=== PATIENT | female | born 1960 | race Caucasian/White ===

== ENCOUNTER → 2019-03-03 14:32 | Outpatient (CLI) | payer OTHER, SELFPAY ==
--- NOTE | 2019-03-03 | DI.MG.S_ITS ---
BILATERAL DIGITAL SCREENING MAMMOGRAM 3D/2D WITH CAD: 03/03/2019 CLINICAL: Routine screening. Comparison is made to exams dated: 10/10/2015 mammogram, 08/17/2012 mammogram, and 10/21/2007 mammogram - [facility]. There are scattered fibroglandular elements in both breasts. Current study was also evaluated with a Computer Aided Detection (CAD) system. No significant masses, calcifications, or other findings are seen in either breast. There has been no significant interval change. IMPRESSION: NEGATIVE There is no mammographic evidence of malignancy. A 1 year screening mammogram is recommended. This exam was interpreted at Station ID: [id number]. NOTE: For mammograms, a report in lay terms will be sent to the patient. Approximately 15% of breast malignancies will not be visualized mammographically. In the management of a palpable breast mass, a negative mammogram must not discourage biopsy of a clinically suspicious lesion. Electronically Signed By: Adán gutierres/senait:03/04/2019 12:41:20 letter sent: Normal Exam ACR BI-RADS Category 1: Negative [id number]
== END ==
PROVIDERS: PCP Nurse Practitioner Family; Visit Provider Nurse Practitioner Family
DX: Z12.31 Encounter for screening mammogram for malignant neoplasm of breast (principal)
CPT/HCPCS: 77063; 77067

== ENCOUNTER 2023-11-03 11:46 | Inpatient (IN) | payer OTHER, SELFPAY ==
[2023-11-03] VITALS (10 sets, daily range): BP systolic 127–191; BP diastolic 65–88; PULSE 77–91; RESP 18; TEMP 34.7–37; O2SAT 94–98; BMI 44.7
--- NOTE | 2023-11-03 12:07 | DI.CT.S_ITS ---
PROCEDURE: CT ABDOMEN PELVIS W CON INDICATIONS: RLQ ABD PAIN TECHNIQUE: After the administration of intravenous contrast, axial sections acquired from the lung bases to the pubic symphysis. Coronal and sagittal reformats were performed. For radiation dose reduction, the following was used: automated exposure control, adjustment of mA and/or kV according to patient size. COMPARISON: None. FINDINGS: Image quality: Diagnostic. Lower Chest: No significant findings. ABDOMEN: Liver: No solid mass. Normal size. Mild hepatic steatosis. Gallbladder: Surgically removed. Biliary ducts: No biliary dilation. Pancreas: No ductal dilation. Spleen: Size is within normal limits. Adrenal Glands: No adrenal nodules. Kidneys and Ureters: No hydronephrosis. No solid mass. No complex renal cystic lesion which requires follow up. Stomach and Bowel: Normal bowel caliber. There are numerous colonic diverticula. There is pericolonic stranding in sigmoid colon consistent with acute diverticulitis. Peritoneum: There are multiple foci of free air in peritoneal cavity in the pelvis and upper abdomen, likely secondary to diverticular perforation. No organized, drainable fluid collections to suggest abscess. Appendix is normal. Ventral Wall: No significant ventral hernia. Abdominal Nodes: No retroperitoneal or mesenteric adenopathy by size criteria. Vessels: Aorta and inferior vena cava are normal in size. PELVIS: Pelvic Organs: Unremarkable. Bladder: No bladder wall thickening, accounting for underdistention. Pelvic Nodes: No enlarged lymph nodes. Miscellaneous: No inguinal hernias are seen. Bones: No aggressive osseous abnormality. Moderate degenerative disc disease at L2-L3. Moderate facet arthropathy at L4-L5 and L5-S1. IMPRESSION: 1. Diverticulosis and acute sigmoid diverticulitis. There are multiple foci of free intraperitoneal air, likely secondary to diverticular perforation. No drainable fluid collections to suggest abscess. The result was discussed with Dr. Seymour in ER. Dictated by: Taran Villagran M.D. on 11/03/2023 at 13:16 Approved by: Taran Villagran M.D. on 11/03/2023 at 13:24
--- NOTE | 2023-11-03 12:07 | ED.ABDPAIN ---
HPI - Abdominal Pain General Chief Complaint: Abdominal Pain Stated Complaint: abdominal pain Time Seen by Provider: 11/03/23 11:55 Source: patient Mode of arrival: Family Vehicle History of Present Illness HPI narrative: 63-year-old female with history asthma, sleep apnea presents by private vehicle from home for 1 day of right lower quadrant abdominal pain. Patient states she was hospitalized for 2 days at [facility] in late September for influenza with hypoxia, she was discharged home, and has been in her usual state of health until yesterday. Pain is aggravating, constant, worsens with movement. Improved with ibuprofen. Denies fevers, chills, nausea, vomiting, other complaints at this time. Related Data Home Medications Medication Instructions Recorded Confirmed cetirizine 10 mg tablet 10 mg PO QDAYP PRN ##0 02/06/17 fluticasone propionate 50 1 spray intranasal QDAY PRN ##0 02/06/17 mcg/actuation nasal spray,suspension (Flonase Allergy Relief) aspirin 81 mg tablet,delayed 81 mg PO QDAY ##0 04/18/17 release cholecalciferol (vitamin D3) 25 1,000 mg PO QDAY ##0 04/18/17 mcg (1,000 unit) tablet (Vitamin D3) coenzyme Q10 100 mg capsule (Co 100 mg PO QDAY ##0 04/18/17 Q-10) cyanocobalamin (vitamin B-12) 500 500 mcg PO QDAY ##0 04/18/17 mcg lozenges (Vitamin B-12) ibuprofen 400 mg tablet 400 mg PO Q8HP PRN ##0 04/18/17 Previous Rx's Medication Instructions Recorded albuterol sulfate 90 mcg/actuation 0.09 mg IH Q4HP PRN #1 inh 01/15/17 aerosol inhaler (Proventil HFA) furosemide 20 mg tablet (Lasix) 20 mg PO QDAY #90 tabs 03/25/17 betamethasone dipropionate 0.05 % 1 marissa topical SEE INSTRUCTIONS ##45 04/03/17 topical ointment methylphenidate HCl 10 mg tablet 10 mg PO BID #60 tabs 04/15/17 (Ritalin) Allergies Allergy/AdvReac Type Severity Reaction Status Date / Time amoxicillin [AMOXICILLIN] Allergy Mild HIVES Verified 11/03/23 13:39 ampicillin [AMPICILLIN] Allergy Mild HIVES Verified 11/03/23 13:39 cephalexin [CEPHALEXIN] Allergy Mild HIVES Verified 11/03/23 13:39 sulfamethoxazole Allergy Mild HIVES Verified 11/03/23 13:39 [SULFAMETHOXAZOLE] trimethoprim [TRIMETHOPRIM] Allergy Mild HIVES Verified 11/03/23 13:39 Review of Systems Review of Systems Narrative: Negative except as noted above Patient History Medical History (Updated 11/03/23 @ 14:11 by Eugenia Seymour MD) Obstructive sleep apnea syndrome (01/15/17) Surgical History Status post surgery (06/13/17) Status post cholecystectomy Family History Mother Hypertension Social History Smoking Status: Never smoker Smoking Status: Never smoker Substance Use Type: does not use Exam Initial Vital Signs Initial Vital Signs: Vital Signs Temperature 94.4 F L 11/03/23 11:50 Pulse Rate 90 11/03/23 11:50 Respiratory Rate 18 11/03/23 11:50 Blood Pressure 191/84 H 11/03/23 11:50 Pulse Oximetry 98 11/03/23 11:50 Oxygen Delivery Method Room Air 11/03/23 11:50 Const: Awake, alert, no acute distress, nontoxic appearing Cardiac: regular rate, regular rhythm RESP: unlabored, clear bilaterally, no wheezing GI: Distended, RLQ tenderness to deep palpation, no rebound, no guarding MSK: Atraumatic, full range of motion, pulses equal Skin: Warm, Dry, intact, no rashes Neuro: AO x3, CN II-XII grossly intact, moves all extremities Course Orders Ordered: ED Orders 11/03/23 12:07 CT abdomen pelvis w con Stat 11/03/23 12:10 CBC Auto Diff [Complete Blood Count AUTO DIFF] Stat CMP [Comprehensive Metabolic Panel] Stat 11/03/23 12:35 UA Complete [Urinalysis and Microscopic] Stat 11/03/23 13:38 Blood Culture Stat Ciprofloxacin (Cipro) 400 mg in 200 mls @ 200 mls/hr IV NOW ONE Stop: 11/03/23 14:38 Metronidazole (Flagyl) 500 mg in 100 mls @ 100 mls/hr IV NOW ONE Stop: 11/03/23 14:38 Discontinued Medications Morphine Sulfate (Morphine 4 Mg/Ml Inj) 4 mg IV NOW ONE Stop: 11/03/23 13:17 Last Admin: 11/03/23 13:41 Dose: 4 mg Documented By: ISELA Vital Signs Vital signs: Vital Signs - 8 hr 11/03/23 11:50 11/03/23 12:01 11/03/23 12:04 Temperature 94.4 F L Pulse Rate 90 91 H Respiratory Rate 18 Blood Pressure 191/84 H 177/83 H Pulse Oximetry 98 97 Oxygen Delivery Method Room Air 11/03/23 12:04 11/03/23 12:30 11/03/23 13:10 Temperature Pulse Rate 85 89 77 Respiratory Rate Blood Pressure Pulse Oximetry 98 95 Oxygen Delivery Method Room Air 11/03/23 13:30 Temperature Pulse Rate 86 Respiratory Rate Blood Pressure Pulse Oximetry 97 Oxygen Delivery Method Room Air MDM - Abdominal Pain Differential Diagnosis Differential diagnosis: Likely abdominal pain, acute appendicitis and calculus of kidney Lab Data 11/03/23 12:10 11/03/23 12:10 Labs: Lab Results 11/03/23 11/03/23 Range/Units 12:10 12:35 WBC 12.4 H (4.5-11.0) X10^3/uL RBC 4.11 (4.0-5.2) X10^6/uL Hgb 12.4 (12.0-16.0) g/dL Hct 37.1 (36-46) % MCV 90.3 (80-100) fL MCH 30.3 (26-34) PG MCHC 33.5 (30-36) % RDW 14.4 (11.6-14.8) % Plt Count 247 (150-400) X10^3/uL Neut % (Auto) 83.9 H (50-75) % Lymph % (Auto) 10.1 L (25-40) % [place] % (Auto) 5.3 (3-14) % Eos % (Auto) 0.1 L (2-4) % Baso % (Auto) 0.6 (0-2) % Neut # (Auto) 85146 H (0698-0114) /uL Lymph # (Auto) 1300 (0298-0512) /uL [place] # (Auto) 700 (0-900) /uL Eos # (Auto) 0 (0-450) /uL Baso # (Auto) 100 (0-100) /uL Sodium 139 (137-145) mmol/L Potassium 3.4 (3.4-5.1) mmol/L Chloride 107 (98-107) mmol/L Carbon Dioxide 28 (22-32) mmol/L BUN 10 (7-17) mg/dL Creatinine 0.45 L (0.52-1.04) mg/dL Estimated GFR > 60 (>60) mL/min BUN/Creatinine Ratio 22.2 H (6-22) Glucose 119 H (80-110) mg/dL Calcium 9.8 (8.4-10.2) mg/dL Total Bilirubin 1.5 H (0.2-1.3) mg/dL AST 21 (14-36) IU/L ALT 29 (<35) IU/L Alkaline Phosphatase 67 (38-126) U/L Total Protein 7.3 (6.3-8.2) g/dL Albumin 4.1 (3.5-5.0) g/dL Globulin 3.2 (1.7-4.1) g/dL Albumin/Globulin Ratio 1.3 (1.0-2.8) Urine Color Yellow Urine Appearance Clear Urine pH 6.0 (4.5-8.0) Ur Specific [place] 1.015 (1.000-1.035) Urine Protein Negative (Negative) Urine Glucose (UA) Negative (Negative) g/dL Urine Ketones Negative (NEGATIVE) Urine Occult Blood Negative (Negative) Urine Nitrate Negative (Negative) Urine Bilirubin Negative (NEGATIVE) Urine Urobilinogen 0.2 (0.2) E.U./dL Ur Leukocyte Esterase Negative (NEGATIVE) Urine RBC None seen (0-5/HPF) Urine WBC None seen (0-5/HPF) Ur Squamous Epith Cells None seen (0-5/HPF) Urine Bacteria None seen (None) Ur Culture Indicated? Cult not indicated Vol Urine Centrifuged 10ml (spun) Point of care testing: Urine Dip Bedside Urine Glucose Negative Bedside Urine Bilirubin - Negative Bedside Urine Ketone - Negative Urine Specific [place] 1.020 Bedside Urine Occult Blood - Negative Bedside Urine pH 6.0 Bedside Urine Protein - Negative Bedside Urine Urobilinogen - Negative Bedside Urine Nitrite - Negative Bedside Urine Leukocytes - Negative Esterase MDM Narrative Medical decision making narrative: Nontoxic appearing patient with 1 day of right lower quadrant pain. Patient does have right lower quadrant tenderness to deep palpation, no peritoneal signs, however patient's abdomen seems distended. Patient denies history of abdominal or liver issues. We will order laboratory work and CT imaging. Laboratory work is reviewed, significant for WBC count 12.4, creatinine 0.45, T bili 1.5, AST 21, ALT 29. Preliminary review of CT scan appears to show free air under the diaphragm. Stat call placed to radiology for expedited read, who confirmed free air in the abdomen due to perforated diverticulitis. Call placed to general surgery Dr. Trinidad, who came to assess the patient at bedside. Patient reports allergy to penicillins and so Cipro and Flagyl were ordered IV for coverage. Dr. Trinidad has assessed the patient at bedside, states that based on patient's clinical presentation as well as abdominal exam at this time he believes patient will be a good candidate for IV antibiotics and hospital observation. Requested admission to hospitalist service. Patient informed of plan and is in agreement with admission at this time. Discharge Plan Departure Patient Disposition: Admitted as Observation Clinical Impression: Perforated diverticulum Abdominal pain Qualifiers: Abdominal location: right lower quadrant Qualified Code(s): R10.31 - Right lower quadrant pain Admit Date/Time: 11/03/23 13:43 Admit Provider: Mannie Castellanos
[2023-11-03 12:21] LABS: Add Manual Diff / Slide Review NO; Basophils Absolute Auto 100 /uL (0-100); Basophils Percent Auto 0.6 % (0-2); Eosinophils Absolute Auto 0 /uL (0-450); Eosinophils Percent Auto 0.1 % (2-4); Hematocrit 37.1 % (36-46); Hemoglobin 12.4 g/dL (12.0-16.0); Lymphocytes Absolute Auto 1300 /uL (1100-4500); Lymphocytes Percent Auto 10.1 % (25-40); Mean Corpuscular HGB Conc 33.5 % (30-36); Mean Corpuscular Hemoglobin 30.3 PG (26-34); Mean Corpuscular Volume 90.3 fL (80-100); Monocytes Absolute Auto 700 /uL (0-900); Monocytes Percent Auto 5.3 % (3-14); Neutrophils Absolute Auto 10500 /uL (1500-7000); Neutrophils Percent Auto 83.9 % (50-75); Platelet Count 247 X10^3/uL (150-400); Red Blood Cell Count 4.11 X10^6/uL (4.0-5.2); Red Cell Distribution Width 14.4 % (11.6-14.8); White Blood Cell Count 12.4 X10^3/uL (4.5-11.0)
[2023-11-03 12:45] LABS: Appearance Urine UA CLEAR; Bilirubin Urine UA NEGATIVE (NEGATIVE); Color Urine UA YELLOW; Glucose Urine UA NEGATIVE (Negative); Ketones Urine UA NEGATIVE (NEGATIVE); Leukocyte Esterase Urine UA NEGATIVE (NEGATIVE); Nitrite Urine UA NEGATIVE (Negative); Occult Blood Urine UA NEGATIVE (Negative); Protein Urine UA NEGATIVE (Negative); Specific Gravity Urine UA 1.015 (1.000-1.035); Urobilinogen Urine UA 0.2 E.U./dL (0.2)
--- NOTE | 2023-11-03 12:45 | PC.NURSE ---
Addendum entered by Janay Barajas R.N. 11/03/23 16:09: Please disregard below. Entered on wrong chart. Original Note: Spoke to poison control. They state that dose (400 mg tablets x # 38 tablets max ingestion) does not appear to be in severe category. Mild to moderate = nausea/vomiting/headache. Supportive care indicated. Ok to eat/drink. Severe would be renal implications and possible seizure. Reported to Dr. Seymour.
[2023-11-03 12:52] LABS: Alanine Aminotransferase 29 IU/L (<35); Albumin 4.1 g/dL (3.5-5.0); Albumin Globulin Ratio 1.3 (1.0-2.8); Alkaline Phosphatase 67 U/L (38-126); Aspartate Aminotransferase 21 IU/L (14-36); BUN Creatinine Ratio 22.2 (6-22); Bilirubin Total 1.5 mg/dL (0.2-1.3); Blood Urea Nitrogen 10 mg/dL (7-17); Calcium 9.8 mg/dL (8.4-10.2); Carbon Dioxide 28 mmol/L (22-32); Chloride 107 mmol/L (98-107); Estimated Glomerular Filt Rate > 60 mL/min (>60); Globulin 3.2 g/dL (1.7-4.1); Glucose 119 mg/dL (80-110); HEMOLYSIS < 15 (0-50); Potassium 3.4 mmol/L (3.4-5.1); Sodium 139 mmol/L (137-145); Total Protein 7.3 g/dL (6.3-8.2)
[2023-11-03 12:56] LABS: Bacteria Urine None Seen; Culture Indicated Urine Cult Not Indicated; RBC Urine None Seen (0-5/HPF); Squamous Epithelial Cell Urine None Seen (0-5/HPF); Urine Volume 10mL (spun); WBC Urine None Seen (0-5/HPF)
[2023-11-03] MEDS: MORPHINE 4 MG/ML INJ IV (13:41)
[2023-11-03] MEDS: CIPROFLOXACIN 400 MG/200 ML PIGGYBACK 200 MG IV (14:07)
[2023-11-03] MEDS: metroNIDAZOLE 500 MG/100 ML PIGGYBACK 100 MG IV (15:35)
--- NOTE | 2023-11-03 16:07 | P.HP_ITS ---
History of Present Illness History of Present Illness Date Patient Seen: 11/03/23 Chief complaint: abdominal pain Narrative: Alma Rosa Rodrigues is a 63-year-old female with past medical history of hypertension, ALYSSA, morbid obesity and cholecystectomy who presents with abdominal pain and found to have perforated diverticulitis. Patient states she developed acute onset RLQ abd pain last night. She has never had diverticulitis before. Pain continued to worsen so she came to the ED from [place] where she lives. She says her grandmother had diverticulosis. Denies NV, diarrhea, CP, SOB, or vertigo. In the ED patient's CT abd showed perforated diverticulitis with small free air in abdomen. Normal appendix. [facility] Medical History (Updated 11/03/23 @ 14:11 by Eugenia Seymour MD) Obstructive sleep apnea syndrome (01/15/17) Surgical History Status post surgery (06/13/17) Status post cholecystectomy Family History Mother Hypertension Social History household members: none Smoking Status: Never smoker alcohol intake: current Meds Home Medications and Allergies Home Medications Medication Instructions Recorded Confirmed Type ibuprofen 400 mg tablet 400 mg PO Q8HP PRN Pain (Scale 04/18/17 11/03/23 History Score 4-6) ##0 albuterol sulfate 2.5 mg/3 mL 2.5 mg inhalation Q6H PRN 11/03/23 11/03/23 History (0.083 %) solution for nebulization Shortness Of Breath amlodipine 5 mg tablet 5 mg PO DAILY 11/03/23 11/03/23 History Allergies Allergy/AdvReac Type Severity Reaction Status Date / Time amoxicillin [AMOXICILLIN] Allergy Mild HIVES Verified 11/03/23 13:39 ampicillin [AMPICILLIN] Allergy Mild HIVES Verified 11/03/23 13:39 cephalexin [CEPHALEXIN] Allergy Mild HIVES Verified 11/03/23 13:39 sulfamethoxazole Allergy Mild HIVES Verified 11/03/23 13:39 [SULFAMETHOXAZOLE] trimethoprim [TRIMETHOPRIM] Allergy Mild HIVES Verified 11/03/23 13:39 Review of Systems Review of Systems Narrative: All other systems reviewed with the patient and are negative unless otherwise stated. Exam Vital Signs (past 8 hours): - 11/03/23 11:50 11/03/23 12:01 11/03/23 12:04 Temperature 94.4 F L Pulse Rate 90 91 H Respiratory Rate 18 Blood Pressure 191/84 H 177/83 H Pulse Oximetry 98 97 Oxygen Delivery Method Room Air 11/03/23 12:04 11/03/23 12:30 11/03/23 13:10 Temperature Pulse Rate 85 89 77 Respiratory Rate Blood Pressure Pulse Oximetry 98 95 Oxygen Delivery Method Room Air 11/03/23 13:30 11/03/23 14:00 11/03/23 14:12 Temperature Pulse Rate 86 83 Respiratory Rate Blood Pressure 148/80 H Pulse Oximetry 97 94 Oxygen Delivery Method Room Air 11/03/23 14:12 11/03/23 14:30 11/03/23 14:30 Temperature Pulse Rate 85 81 Respiratory Rate Blood Pressure 150/88 H Pulse Oximetry 94 95 Oxygen Delivery Method Room Air Oxygen Delivery Method Room Air Narrative Exam Narrative: GEN: no acute distress, obese HEENT: moist mucous membranes, PERRL NECK: trachea midline, no JVD CV: regular rate and rhythm, no murmurs PULM: clear bilaterally ABD: soft, tenderness in RLQ, nondistended, no organomegaly EXT: warm and well perfused with no edema NEURO: awake, alert, oriented, no focal deficits Objective Labs 11/03/23 12:10 11/03/23 12:10 Labs: Laboratory Results - last 24 hr 11/03/23 11/03/23 12:10 12:35 WBC 12.4 H RBC 4.11 Hgb 12.4 Hct 37.1 MCV 90.3 MCH 30.3 MCHC 33.5 RDW 14.4 Plt Count 247 Neut % (Auto) 83.9 H Lymph % (Auto) 10.1 L [place] % (Auto) 5.3 Eos % (Auto) 0.1 L Baso % (Auto) 0.6 Neut # (Auto) 67672 H Lymph # (Auto) 1300 [place] # (Auto) 700 Eos # (Auto) 0 Baso # (Auto) 100 Sodium 139 Potassium 3.4 Chloride 107 Carbon Dioxide 28 BUN 10 Creatinine 0.45 L Estimated GFR > 60 BUN/Creatinine Ratio 22.2 H Glucose 119 H Calcium 9.8 Total Bilirubin 1.5 H AST 21 ALT 29 Alkaline Phosphatase 67 Total Protein 7.3 Albumin 4.1 Globulin 3.2 Albumin/Globulin Ratio 1.3 Urine Color Yellow Urine Appearance Clear Urine pH 6.0 Ur Specific [place] 1.015 Urine Protein Negative Urine Glucose (UA) Negative Urine Ketones Negative Urine Occult Blood Negative Urine Nitrate Negative Urine Bilirubin Negative Urine Urobilinogen 0.2 Ur Leukocyte Esterase Negative Urine RBC None seen Urine WBC None seen Ur Squamous Epith Cells None seen Urine Bacteria None seen Ur Culture Indicated? Cult not indicated Vol Urine Centrifuged 10ml (spun) Assessment & Plan Assessment & Plan narrative: # acute perforated diverticulitis -continue Cipro and Flagyl, has allergy to penicillin -general surgery following -per CT no evidence of abscess -clears for now, NPO at midnight just in case # hypertension -continue home amlodipine # ALYSSA -continue CPAP # morbid obesity -BMI 44 Code status is full code. DVT prophylaxis with SCDs. Proxy is sister Dominga. I have reviewed home meds and used all available resources to reconcile the home meds. Case discussed with ED physician/APC and patient will be admitted to the hospitalist service for further workup and management. This patient will be admitted as observation and will require less than 2 midnights of hospital time to treat perforated diverticulitis. Quality VTE Deep Vein Thrombosis/Pulmonary Embolism Present on Admission: No
--- NOTE | 2023-11-03 17:28 | P.CONS_ITS ---
History of Present Illness Consult details Date Patient Seen: 11/03/23 Chief complaint: abdominal pain Narrative: The patient is a 63-year-old woman who presented to the emergency room with approximately 12 hours of sudden onset left lower quadrant pain. A CT scan demonstrated acute perforated diverticulitis without abscess or phlegmon. She has never had diverticulitis before. Meds Home Medications and Allergies Home Medications Medication Instructions Recorded Confirmed Type ibuprofen 400 mg tablet 400 mg PO Q8HP PRN Pain (Scale 04/18/17 11/03/23 History Score 4-6) ##0 albuterol sulfate 2.5 mg/3 mL 2.5 mg inhalation Q6H PRN 11/03/23 11/03/23 History (0.083 %) solution for nebulization Shortness Of Breath amlodipine 5 mg tablet 5 mg PO DAILY 11/03/23 11/03/23 History Allergies Allergy/AdvReac Type Severity Reaction Status Date / Time amoxicillin [AMOXICILLIN] Allergy Mild HIVES Verified 11/03/23 13:39 ampicillin [AMPICILLIN] Allergy Mild HIVES Verified 11/03/23 13:39 cephalexin [CEPHALEXIN] Allergy Mild HIVES Verified 11/03/23 13:39 sulfamethoxazole Allergy Mild HIVES Verified 11/03/23 13:39 [SULFAMETHOXAZOLE] trimethoprim [TRIMETHOPRIM] Allergy Mild HIVES Verified 11/03/23 13:39 Exam Vital Signs (past 8 hours): - 11/03/23 11:50 11/03/23 12:01 11/03/23 12:04 Temperature 94.4 F L Pulse Rate 90 91 H Respiratory Rate 18 Blood Pressure 191/84 H 177/83 H Pulse Oximetry 98 97 Oxygen Delivery Method Room Air 11/03/23 12:04 11/03/23 12:30 11/03/23 13:10 Temperature Pulse Rate 85 89 77 Respiratory Rate Blood Pressure Pulse Oximetry 98 95 Oxygen Delivery Method Room Air 11/03/23 13:30 11/03/23 14:00 11/03/23 14:12 Temperature Pulse Rate 86 83 Respiratory Rate Blood Pressure 148/80 H Pulse Oximetry 97 94 Oxygen Delivery Method Room Air 11/03/23 14:12 11/03/23 14:30 11/03/23 14:30 Temperature Pulse Rate 85 81 Respiratory Rate Blood Pressure 150/88 H Pulse Oximetry 94 95 Oxygen Delivery Method Room Air Oxygen Delivery Method Room Air Narrative Exam Narrative: Abdomen generalized tenderness to palpation in all quadrants without yessica peritonitis Speaking in full sentences Const Nutritional Appearance: obese Objective Labs 11/03/23 12:10 11/03/23 12:10 Labs: Laboratory Results - last 24 hr 11/03/23 11/03/23 12:10 12:35 WBC 12.4 H RBC 4.11 Hgb 12.4 Hct 37.1 MCV 90.3 MCH 30.3 MCHC 33.5 RDW 14.4 Plt Count 247 Neut % (Auto) 83.9 H Lymph % (Auto) 10.1 L [place] % (Auto) 5.3 Eos % (Auto) 0.1 L Baso % (Auto) 0.6 Neut # (Auto) 27694 H Lymph # (Auto) 1300 [place] # (Auto) 700 Eos # (Auto) 0 Baso # (Auto) 100 Sodium 139 Potassium 3.4 Chloride 107 Carbon Dioxide 28 BUN 10 Creatinine 0.45 L Estimated GFR > 60 BUN/Creatinine Ratio 22.2 H Glucose 119 H Calcium 9.8 Total Bilirubin 1.5 H AST 21 ALT 29 Alkaline Phosphatase 67 Total Protein 7.3 Albumin 4.1 Globulin 3.2 Albumin/Globulin Ratio 1.3 Urine Color Yellow Urine Appearance Clear Urine pH 6.0 Ur Specific [place] 1.015 Urine Protein Negative Urine Glucose (UA) Negative Urine Ketones Negative Urine Occult Blood Negative Urine Nitrate Negative Urine Bilirubin Negative Urine Urobilinogen 0.2 Ur Leukocyte Esterase Negative Urine RBC None seen Urine WBC None seen Ur Squamous Epith Cells None seen Urine Bacteria None seen Ur Culture Indicated? Cult not indicated Vol Urine Centrifuged 10ml (spun) [facility] Medical History (Updated 11/03/23 @ 14:11 by Eugenia Seymour MD) Obstructive sleep apnea syndrome (01/15/17) Surgical History Status post surgery (06/13/17) Status post cholecystectomy Family History Mother Hypertension Social History household members: none Tobacco & Substance Use Smoking Status: Never smoker alcohol intake: current Assessment & Plan Assessment and plan (1) Perforated diverticulum: Status: Acute Plan Given her moderate level of abdominal tenderness and stable vital signs I recommend IV antibiotic treatment for perforated diverticulitis. If her symptoms worsen she would need to go to the operating room for a Conchis's procedure.
[2023-11-03] MEDS: ACETAMINOPHEN 325 MG TABLET 650 MG PO (19:43)
[2023-11-03] MEDS: OXYCODONE IR 5 MG TABLET PO (19:44)
[2023-11-03] MEDS: metroNIDAZOLE 500 MG TABLET PO (20:14)
[2023-11-04] VITALS (8 sets, daily range): BP systolic 107–149; BP diastolic 58–72; PULSE 70–91; RESP 16–20; TEMP 36.3–37.4; O2SAT 91–93
[2023-11-04] MEDS: CIPROFLOXACIN 400 MG/200 ML PIGGYBACK 200 MG IV ×2 (01:01→14:39)
[2023-11-04] MEDS: SODIUM CHLORIDE 0.9% 1,000 ML 125 ML IV ×2 (02:30→10:05)
[2023-11-04] MEDS: HYDROMORPHONE 1 MG INJ IV (05:44)
[2023-11-04 05:59] LABS: Add Manual Diff / Slide Review NO; Basophils Absolute Auto 0 /uL (0-100); Basophils Percent Auto 0.2 % (0-2); Eosinophils Absolute Auto 0 /uL (0-450); Eosinophils Percent Auto 0.3 % (2-4); Hematocrit 31.6 % (36-46); Hemoglobin 10.7 g/dL (12.0-16.0); Lymphocytes Absolute Auto 1100 /uL (1100-4500); Lymphocytes Percent Auto 9.7 % (25-40); Mean Corpuscular HGB Conc 33.9 % (30-36); Mean Corpuscular Volume 91.4 fL (80-100); Monocytes Absolute Auto 800 /uL (0-900); Monocytes Percent Auto 7.6 % (3-14); Neutrophils Absolute Auto 9100 /uL (1500-7000); Neutrophils Percent Auto 82.2 % (50-75); Platelet Count 214 X10^3/uL (150-400); Red Blood Cell Count 3.46 X10^6/uL (4.0-5.2); Red Cell Distribution Width 14.2 % (11.6-14.8); White Blood Cell Count 11.1 X10^3/uL (4.5-11.0)
[2023-11-04 06:04] LABS: INR 1.1 (0.9-1.3); Prothrombin Time 13.1 SECONDS (9.4-12.5)
[2023-11-04 06:09] LABS: BUN Creatinine Ratio 20.9 (6-22); Blood Urea Nitrogen 9 mg/dL (7-17); Calcium 8.7 mg/dL (8.4-10.2); Carbon Dioxide 26 mmol/L (22-32); Chloride 106 mmol/L (98-107); Estimated Glomerular Filt Rate > 60 mL/min (>60); Glucose 119 mg/dL (80-110); HEMOLYSIS < 15 (0-50); Potassium 3.5 mmol/L (3.4-5.1); Sodium 136 mmol/L (137-145)
--- NOTE | 2023-11-04 06:11 | PC.NURSE ---
director microbiology: Patient is AxOx4, VSS, O2 saturation in mid 90's on RA. Sleeps w/ CPAP. Complaints of moderate pain in abdomen, states that ordered pain medications have been effective. Denies N/V. IVF infusing. IV & PO abx given. Ambulates to the bathroom. Plan of care ongoing.
--- NOTE | 2023-11-04 07:25 | PM.PN.1 ---
Subjective Subjective Interval history: Her pain is slightly better. She is eating lunch and has minimal flatus. No nausea. Surgeon is advancing diet. Exam Vital Signs (past 8 hours): - 11/04/23 00:38 11/04/23 04:41 11/04/23 05:47 Temperature 98.5 F 98.5 F Pulse Rate 75 78 Respiratory Rate 18 18 Blood Pressure 107/59 L 114/58 L Pulse Oximetry 93 91 93 Oxygen Delivery Method CPAP Oxygen Flow Rate 0 0 Oxygen Delivery Method CPAP Oxygen Flow Rate 0 Narrative Exam Narrative: NAD, alert and oriented. Fluent speech. Lungs are clear, normal rate and effort. Heart is regular, no murmur gallop or rub. Abdomen is soft,distended and hypertympanic. MilD RLQ tenderness, no rebound. Extremities are free of edema. Objective Imaging CT scan - abdomen: Radiologist's impression: 1. Diverticulosis and acute sigmoid diverticulitis. There are multiple foci of free intraperitoneal air, likely secondary to diverticular perforation. No drainable fluid collections to suggest abscess. Labs 11/04/23 05:31 11/04/23 05:31 Labs: Laboratory Results - last 24 hr 11/03/23 11/03/23 11/04/23 12:10 12:35 05:31 WBC 12.4 H 11.1 H RBC 4.11 3.46 L Hgb 12.4 10.7 L Hct 37.1 31.6 L MCV 90.3 91.4 MCH 30.3 31.0 MCHC 33.5 33.9 RDW 14.4 14.2 Plt Count 247 214 Neut % (Auto) 83.9 H 82.2 H Lymph % (Auto) 10.1 L 9.7 L [place] % (Auto) 5.3 7.6 Eos % (Auto) 0.1 L 0.3 L Baso % (Auto) 0.6 0.2 Neut # (Auto) 93384 H 9100 H Lymph # (Auto) 1300 1100 [place] # (Auto) 700 800 Eos # (Auto) 0 0 Baso # (Auto) 100 0 PT 13.1 H INR 1.1 Sodium 139 136 L Potassium 3.4 3.5 Chloride 107 106 Carbon Dioxide 28 26 BUN 10 9 Creatinine 0.45 L 0.43 L Estimated GFR > 60 > 60 BUN/Creatinine Ratio 22.2 H 20.9 Glucose 119 H 119 H Calcium 9.8 8.7 Total Bilirubin 1.5 H AST 21 ALT 29 Alkaline Phosphatase 67 Total Protein 7.3 Albumin 4.1 Globulin 3.2 Albumin/Globulin Ratio 1.3 Urine Color Yellow Urine Appearance Clear Urine pH 6.0 Ur Specific [place] 1.015 Urine Protein Negative Urine Glucose (UA) Negative Urine Ketones Negative Urine Occult Blood Negative Urine Nitrate Negative Urine Bilirubin Negative Urine Urobilinogen 0.2 Ur Leukocyte Esterase Negative Urine RBC None seen Urine WBC None seen Ur Squamous Epith Cells None seen Urine Bacteria None seen Ur Culture Indicated? Cult not indicated Vol Urine Centrifuged 10ml (spun) [facility] Medical History Obstructive sleep apnea syndrome (01/15/17) Surgical History Status post surgery (06/13/17) Status post cholecystectomy Family History Mother Hypertension Social History household members: none Smoking Status: Never smoker alcohol intake: current Assessment & Plan Assessment & Plan narrative: 1. Acute perforated diverticulitis, present on admission and active. -continue Cipro and Flagyl, has allergy to penicillin -general surgery following (Amos) -per CT no evidence of abscess -advance diet per surgery -discussed with surgery. 2. Hypertension, present on admission and stable. -continue home amlodipine 3. ALYSSA, present on admission and stable. -continue CPAP 4. Morbid obesity, present on admission and stable. -BMI 44 Code status is full code. DVT prophylaxis with SCDs. Proxy is sister Dominga. DISPO: Continue antibiotics, likely for least 1 more midnight. Discuss with surgery. Possibly home on November 04 if she is clinically improved. Quality VTE Deep Vein Thrombosis/Pulmonary Embolism Present on Admission: No
[2023-11-04] MEDS: HYDROMORPHONE 0.5 MG INJ IV ×2 (10:03→18:55)
[2023-11-04] MEDS: metroNIDAZOLE 500 MG TABLET PO ×3 (10:06→20:29)
--- NOTE | 2023-11-04 10:26 | P.PN_ITS ---
Subjective Subjective Date Patient Seen: 11/04/23 Time Patient Seen: 10:26 Interval history: Feels about the same as yesterday. Passing some flatus. Minimal appetite. Exam Vital Signs (past 8 hours): - 11/04/23 04:41 11/04/23 05:47 11/04/23 08:00 Temperature 98.5 F 99.4 F Pulse Rate 78 86 Respiratory Rate 18 16 Blood Pressure 114/58 L 119/65 Pulse Oximetry 91 93 92 Oxygen Delivery Method CPAP Oxygen Flow Rate 0 0 11/04/23 08:01 11/04/23 10:05 Temperature 98.4 F Pulse Rate Respiratory Rate Blood Pressure 124/59 L Pulse Oximetry Oxygen Delivery Method CPAP Oxygen Flow Rate Oxygen Delivery Method CPAP Oxygen Flow Rate 0 Narrative Exam Narrative: Tender to palpation in all quadrants No peritoneal signs Objective Labs 11/04/23 05:31 11/04/23 05:31 Labs: Laboratory Results - last 24 hr 11/03/23 11/03/23 11/04/23 12:10 12:35 05:31 WBC 12.4 H 11.1 H RBC 4.11 3.46 L Hgb 12.4 10.7 L Hct 37.1 31.6 L MCV 90.3 91.4 MCH 30.3 31.0 MCHC 33.5 33.9 RDW 14.4 14.2 Plt Count 247 214 Neut % (Auto) 83.9 H 82.2 H Lymph % (Auto) 10.1 L 9.7 L [place] % (Auto) 5.3 7.6 Eos % (Auto) 0.1 L 0.3 L Baso % (Auto) 0.6 0.2 Neut # (Auto) 06668 H 9100 H Lymph # (Auto) 1300 1100 [place] # (Auto) 700 800 Eos # (Auto) 0 0 Baso # (Auto) 100 0 PT 13.1 H INR 1.1 Sodium 139 136 L Potassium 3.4 3.5 Chloride 107 106 Carbon Dioxide 28 26 BUN 10 9 Creatinine 0.45 L 0.43 L Estimated GFR > 60 > 60 BUN/Creatinine Ratio 22.2 H 20.9 Glucose 119 H 119 H Calcium 9.8 8.7 Total Bilirubin 1.5 H AST 21 ALT 29 Alkaline Phosphatase 67 Total Protein 7.3 Albumin 4.1 Globulin 3.2 Albumin/Globulin Ratio 1.3 Urine Color Yellow Urine Appearance Clear Urine pH 6.0 Ur Specific [place] 1.015 Urine Protein Negative Urine Glucose (UA) Negative Urine Ketones Negative Urine Occult Blood Negative Urine Nitrate Negative Urine Bilirubin Negative Urine Urobilinogen 0.2 Ur Leukocyte Esterase Negative Urine RBC None seen Urine WBC None seen Ur Squamous Epith Cells None seen Urine Bacteria None seen Ur Culture Indicated? Cult not indicated Vol Urine Centrifuged 10ml (spun) PFSH Medical History Obstructive sleep apnea syndrome (01/15/17) Surgical History Status post surgery (06/13/17) Status post cholecystectomy Family History Mother Hypertension Social History household members: none Smoking Status: Never smoker alcohol intake: current Assessment & Plan Assessment and plan (1) Perforated diverticulum: Status: Acute Plan Continue IV antibiotics Clear liquid diet Quality VTE Deep Vein Thrombosis/Pulmonary Embolism Present on Admission: No
--- NOTE | 2023-11-04 14:32 | CM.DANOTE ---
DCP Assessment Note pt is a 63yo F here under the care of hospitalist/gen surgery team. Here under INPT status for diverticulitis. PCP Erendira Wilcox. Payer Just[employer] and self pay PIG IRON LOADER reviewed EMR. Per hospitalist in morning rounds, anticipate here a day or so. Per RN, Amos to re-evaluate tomorrow. If improving, dc home on PO abx. If not, will explore surgical intervention. Per RN, doing well in room, indep at baseline. PIG IRON LOADER met with pt in room. Resting in bed. Lives alone on [address]. Has local friend/family support. Wants emergency contact to be rachelle Luo ([phone]). Pt drove self here and reports wanting a boarding pass at dc, plans to drive self home. Reports she was told PO Abx at dc. Denies any other CM/DCP needs. Plan: surg to re-evalute tomorrow- either dc home with abx or surg. Will drive self- CM team to provide priority boarding pass at dc. No identified additional barriers to safe dc home. CM team will continue to follow closely. OH Flynn Discharge Planning/Care Management CM Discharge Assessment Start: 11/04/23 14:31 Freq: Status: Active Protocol: Document 11/04/23 14:32 (Rec: 11/04/23 14:32 [id number]) Discharge Planning Assessment Assigned Digital Artist OH Chavez DPOA/Assigned Designee Name rachelle Luo Contact Information [phone] Advance Directives? No History Provided By Patient Prior Living Arrangements House Household Members none Type of transporation used prior to Drives own vehicle admit Independent with ADL's Yes Is patient alert and oriented? Yes Barriers to Discharge No Discharge Plan Home Transportation Arrangement self in POV Referrals Initiated None needed Additional Comment will likely need priority boarding pass upon dc Whiteboard Updated in Patient Room with Yes name and ext. # of Digital Artist Review Status In Process Next Review Type Continued Stay Review
[2023-11-04] MEDS: guaiFENesin ER 600 MG TAB PO (22:14)
[2023-11-05] MEDS: CIPROFLOXACIN 400 MG/200 ML PIGGYBACK 200 MG IV (02:11)
[2023-11-05 03:46] VITALS: BP 112/62; PULSE 79; RESP 16; TEMP 36.7; O2SAT 93
[2023-11-05 05:56] LABS: Add Manual Diff / Slide Review NO; Basophils Absolute Auto 0 /uL (0-100); Basophils Percent Auto 0.5 % (0-2); Eosinophils Absolute Auto 100 /uL (0-450); Eosinophils Percent Auto 0.5 % (2-4); Hematocrit 30.4 % (36-46); Hemoglobin 10.5 g/dL (12.0-16.0); Lymphocytes Absolute Auto 1400 /uL (1100-4500); Lymphocytes Percent Auto 13.5 % (25-40); Mean Corpuscular HGB Conc 34.3 % (30-36); Mean Corpuscular Hemoglobin 31.1 PG (26-34); Mean Corpuscular Volume 90.6 fL (80-100); Monocytes Absolute Auto 800 /uL (0-900); Monocytes Percent Auto 7.6 % (3-14); Neutrophils Absolute Auto 8300 /uL (1500-7000); Neutrophils Percent Auto 77.9 % (50-75); Platelet Count 212 X10^3/uL (150-400); Red Blood Cell Count 3.36 X10^6/uL (4.0-5.2); Red Cell Distribution Width 14.1 % (11.6-14.8); White Blood Cell Count 10.6 X10^3/uL (4.5-11.0)
[2023-11-05 06:02] LABS: Blood Urea Nitrogen 6 mg/dL (7-17); Calcium 8.6 mg/dL (8.4-10.2); Carbon Dioxide 27 mmol/L (22-32); Chloride 107 mmol/L (98-107); Estimated Glomerular Filt Rate > 60 mL/min (>60); Glucose 107 mg/dL (80-110); HEMOLYSIS < 15 (0-50); Potassium 3.5 mmol/L (3.4-5.1); Sodium 136 mmol/L (137-145)
[2023-11-05 08:00] VITALS: BP 143/67; PULSE 90; RESP 16; TEMP 36.3; O2SAT 93
[2023-11-05] MEDS: AMLODIPINE 5 MG TABLET PO (08:41)
[2023-11-05] MEDS: guaiFENesin ER 600 MG TAB PO (08:41)
[2023-11-05] MEDS: metroNIDAZOLE 500 MG TABLET PO ×2 (08:41→14:44)
--- NOTE | 2023-11-05 09:26 | P.PN_ITS ---
Subjective Subjective Date Patient Seen: 11/05/23 Time Patient Seen: 09:26 Interval history: Doing better today. White count is normal today. Still on small amounts of clear liquids with minimal appetite for regular food. Exam Vital Signs (past 8 hours): - 11/05/23 03:46 11/05/23 08:00 Temperature 98.1 F 97.3 F L Pulse Rate 79 90 Respiratory Rate 16 16 Blood Pressure 112/62 143/67 H Pulse Oximetry 93 93 Oxygen Flow Rate 0 0 Oxygen Delivery Method CPAP Oxygen Flow Rate 0 Const General: No acute distress Resp Effort & Inspection: normal respiratory effort Objective Labs 11/05/23 05:38 11/05/23 05:38 Labs: Laboratory Results - last 24 hr 11/05/23 05:38 WBC 10.6 RBC 3.36 L Hgb 10.5 L Hct 30.4 L MCV 90.6 MCH 31.1 MCHC 34.3 RDW 14.1 Plt Count 212 Neut % (Auto) 77.9 H Lymph % (Auto) 13.5 L [place] % (Auto) 7.6 Eos % (Auto) 0.5 L Baso % (Auto) 0.5 Neut # (Auto) 8300 H Lymph # (Auto) 1400 [place] # (Auto) 800 Eos # (Auto) 100 Baso # (Auto) 0 Sodium 136 L Potassium 3.5 Chloride 107 Carbon Dioxide 27 BUN 6 L Creatinine 0.43 L Estimated GFR > 60 BUN/Creatinine Ratio 14.0 Glucose 107 Calcium 8.6 PFSH Medical History Obstructive sleep apnea syndrome (01/15/17) Surgical History Status post surgery (06/13/17) Status post cholecystectomy Family History Mother Hypertension Social History household members: none Smoking Status: Never smoker alcohol intake: current Assessment & Plan Assessment and plan (1) Perforated diverticulum: Status: Acute Plan Okay to transition to oral antibiotics in preparation for discharge home today. She can advance to regular diet over the next few days at home. Quality VTE Deep Vein Thrombosis/Pulmonary Embolism Present on Admission: No
--- NOTE | 2023-11-05 11:58 | P.DS_ITS ---
History of Present Illness History of Present Illness Date Patient Seen: 11/05/23 Time Patient Seen: 11:58 Chief complaint: abdominal pain Narrative: Alma Rosa Rodrigues is a 63-year-old female with past medical history of hypertension, ALYSSA, morbid obesity and cholecystectomy who presents with abdominal pain and found to have perforated diverticulitis. Patient states she developed acute onset RLQ abd pain last night. She has never had diverticulitis before. Pain continued to worsen so she came to the ED from [place] where she lives. She says her grandmother had diverticulosis. Denies NV, diarrhea, CP, SOB, or vertigo. In the ED patient's CT abd showed perforated diverticulitis with small free air in abdomen. Normal appendix. Discharge Providers Provider Date of admission: 11/03/23 13:43 Discharge Date: 11/05/23 Primary care physician: ALL Yuen Consults: 11/03/23 14:06 Consult to General Surgery Routine Comment: Consulting Provider: Tony Trinidad Reason for consultation: PERFORATED DIVERTICULITIS Has provider been notified: Yes Discharge provider: Michele Joyner DO Summary Hospital Course Discharge Diagnosis: 1. Acute perforated diverticulitis, present on admission and active. 2. Hypertension, present on admission and stable. 3. ALYSSA, present on admission and stable. 4. Morbid obesity, present on admission and stable. Hospital Course: 63 F admitted with diverticulitis with microperforation. Patient's symptoms improved with antibiotic therapy recommended by surgical consultation. Her diet was advanced, pain was controlled. She will continue on oral cipro/flagyl for another 10 days at discharge due to penicillin and cephalosporin allergies. PCP follow up is recommended in the next week or so for continued management. Time Spent with Patient Time spent: Less than 30 minutes Exam Vital Signs (past 8 hours): - 11/05/23 08:00 Temperature 97.3 F L Pulse Rate 90 Respiratory Rate 16 Blood Pressure 143/67 H Pulse Oximetry 93 Oxygen Flow Rate 0 Oxygen Delivery Method CPAP Oxygen Flow Rate 0 Narrative Exam Narrative: NAD, alert and oriented. Fluent speech. Lungs are clear, normal rate and effort. Heart is regular, no murmur gallop or rub. Abdomen is soft,distended and hypertympanic. MilD RLQ tenderness, no rebound. Extremities are free of edema. Objective Labs 11/05/23 05:38 11/05/23 05:38 Labs: Laboratory Results - last 24 hr 11/05/23 05:38 WBC 10.6 RBC 3.36 L Hgb 10.5 L Hct 30.4 L MCV 90.6 MCH 31.1 MCHC 34.3 RDW 14.1 Plt Count 212 Neut % (Auto) 77.9 H Lymph % (Auto) 13.5 L [place] % (Auto) 7.6 Eos % (Auto) 0.5 L Baso % (Auto) 0.5 Neut # (Auto) 8300 H Lymph # (Auto) 1400 [place] # (Auto) 800 Eos # (Auto) 100 Baso # (Auto) 0 Sodium 136 L Potassium 3.5 Chloride 107 Carbon Dioxide 27 BUN 6 L Creatinine 0.43 L Estimated GFR > 60 BUN/Creatinine Ratio 14.0 Glucose 107 Calcium 8.6 PFSH Medical History Obstructive sleep apnea syndrome (01/15/17) Surgical History Status post surgery (06/13/17) Status post cholecystectomy Family History Mother Hypertension Social History household members: none Smoking Status: Never smoker alcohol intake: current Discharge Plan Discharge Plan Patient Disposition: Home Provider Discharge Comment: You were admitted to the hospital with diverticulitis. Continue antibiotics at home for another 10 days. Follow up with primary care provider as soon as possible after discharge for review of ongoing symptoms and further recommendations. Discharge orders & Medications Prescriptions: New ciprofloxacin HCl 500 mg tablet 500 mg PO BID 10 Days Qty: 20 0RF metronidazole 500 mg tablet 500 mg PO TID 10 Days Qty: 30 0RF Continued ibuprofen 400 MG tablet 400 mg PO Q8HP PRN (Reason: Pain (Scale Score 4-6)) Qty: 0 albuterol sulfate 2.5 mg /3 mL (0.083 %) solution for nebulization 2.5 mg inhalation Q6H PRN (Reason: Shortness Of Breath) amlodipine 5 mg tablet 5 mg PO DAILY Medication counseling provided by Pharmacist: Yes Follow up/Referrals: Erendira Wilcox ARNP [Primary Care Provider] - Diet/Activity/Treatments Diet: Diet as Tolerated and Clear Liquid Diet comment: Advance your diet as tolerated Activity: As tolerated, no restrictions Visit Report/Discharge Packet Instructions: DI for Diverticulitis Stand Alone Forms: Patient Portal/API, Stroke Signs & Symptoms Discharge Data Primary Care Provider: Erendira Wilcox VTE Deep Vein Thrombosis/Pulmonary Embolism Present on Admission: No
--- NOTE | 2023-11-05 13:24 | CM.DPNOTE ---
DCP Note POLISHING WHEEL REPAIRER reviewed EMR. Per hospitalist, dc pending abx plan. Per surgeon note, pt cleared to dc home today on abx and advancing diet at home. Per hospitalist, pt appropriate for priority boarding pass due to increased risk of abdominal pain/need to get medicine from pharmacy prior to close. POLISHING WHEEL REPAIRER completed priority boarding pass. POLISHING WHEEL REPAIRER met with pt in room. Handed pt priority boarding pass. Pt reports plan is to drive self home. Pt reports no other CM needs. Plan: pt to dc home today, transport via self/ferry. No additional CM needs identified at this time. CM team will follow as needed. OH Flynn
--- NOTE | 2023-11-05 14:49 | PC.NURSE ---
Day shift: Discharge instructions gone over with patient, all questions answered and patient stated understanding. PIV d/c'ed prior to discharge. All belongings with patient. PCT Toby escorted patient to exit via wheelchair where patient plans to drive herself home.
== END 2023-11-05 14:45 | disposition home or self-care (01) | DRG 392 ==
LOC: ED 13:06 → AC 14:03
PROVIDERS: Admitting Provider Student in an Organized Health Care Education/Training Program; Emergency Provider Emergency Medicine; PCP Nurse Practitioner Family; Visit Provider Student in an Organized Health Care Education/Training Program
DX: K57.20 Diverticulitis of large intestine with perforation and abscess without bleeding (principal); Z68.41 Body mass index [BMI] 40.0-44.9, adult; E66.01 Morbid (severe) obesity due to excess calories; I10 Essential (primary) hypertension; G47.33 Obstructive sleep apnea (adult) (pediatric)
CPT/HCPCS: 36415; 74177; 80048; 80053; 81001; 81003; 85025; 85610; 87040; 96365; 96375; 99231; 99232; 99284; 99285; J0744; J1170; J2270; Q9967